=== PATIENT | male | born 1945 | race Caucasian/White ===

== ENCOUNTER → 2025-04-30 | Outpatient (CLI) | payer MEDICARE ==
[2025-04-30 14:08] VITALS: BP 174/93; PULSE 73; RESP 18; TEMP 97.8
--- NOTE | 2025-04-30 15:19 | P.SLEEP ---
History of Present Illness DATE: 04/30/2025 CONSULTATION/NEW PATIENT EVALUATION HISTORY OF PRESENT ILLNESS/SLEEP-WAKE EVALUATION: 79-year-old gentleman had b een evaluated in the sleep center for possible obstructive sleep apnea hypopnea syndrome. SLEEP SCHEDULE: Usually sleep schedule from midnight until 7:30 AM. FALLING ASLEEP: Usually no problems with falling asleep. DURING SLEEP: Patient snores and may wake up from sleep with nocturia. No history of hypnogogical hallucinations, sleep paralysis, or cataplexy. DURING THE DAY/WAKE STATE: Usually patient does not take naps. [place] sleepiness scale is 3. PAST MEDICAL HISTORY: Hypertension, BPH, stage III kidney failure. PAST SURGICAL HISTORY: Bilateral knees and hip arthroplasty, TURP. MEDICATIONS: Amlodipine 5 mg once a day, fluticasone nasal spray. SOCIAL HISTORY: Please see below. FAMILY HISTORY: Please see below. REVIEW OF SYSTEMS: Snoring. No fevers. No double vision. No recent chest pain. No shortness of breath. No abdominal pain. No bleeding episodes. No blood in urine. No seizure episodes. PHYSICAL EXAMINATION: GENERAL: A pleasant patient without any distress. VITAL SIGNS: Please see below, weight 203.2 pounds, BMI 30.8. HEENT: PERRLA, EOMI. Evaluation of oropharynx showed tongue protrudes midline, low position of soft palate Mallampati 4. NECK: Supple. No JVD. Thyroid is not palpable. 17 inches in circumference. LUNGS: Clear to percussion and to auscultation. Good air exchange. No wheezing or rhonchi. HEART: S1, S2 regular. No murmurs, gallops or rubs. ABDOMEN: Soft and nontender. Bowel sounds are present. No organomegaly appreciated. EXTREMITIES: No clubbing or cyanosis. 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 Cranial nerves 2 to 7 intact. There is no fasciculation or atrophy noted. No focal deficits observed. ASSESSMENT: 1. Snoring, awakenings from sleep, extremely low position of soft palate Mallampati 4, wide neck 17 inches in circumference. Obstructive sleep apnea hypopnea syndrome. 2. Hypertension. 3. History of stage III kidney failure. 4. Status post TURP. 5 status post bilateral hip arthroplasty. 6 . Status post bilateral knee arthroplasty. PLAN: 1. Polysomnography for evaluation of patient's breathing during sleep. 2. Following plan after reading sleep study. 3. Preferable position during sleep on the side. 4. No driving if patient feels any sleepiness. Patient is aware of civil and criminal liability for unsafe driving. 5. Sleep hygiene with regular sleep time for at least 7.5-8 hours. 6. Watching weight. Thank you very much for referring this patient for consultation. Sincerely, Ryland Quiroz MD, PhD, FAASM. Diplomat of [place] [employer], Sleep Medicine Board by [place] [employer] [place] [employer] Medical Chief Technician of [facility] [place] cc: Fernando Barnes DO Past Medical History Past Medical History: Hypertension Additional Past Medical History / Comment(s): Sinus infection currently History of Any Multi-Drug Resistant Organisms: None Reported Past Surgical History: Joint Replacement, Orthopedic Surgery Additional Past Surgical History / Comment(s): TURP, R HIP ARTHROPLASTY, L HIP ARTHROPLASTY L KNEE ARTHOPLASTY, R KNEE ARTHROPLASTY Past Psychological History: No Psychological Hx Reported Smoking Status: Never smoker Past Alcohol Use History: Occasional Past Drug Use History: None Reported - Past Family History Father Family Medical History: Cancer Additional Family Medical History / Comment(s): LUNG CANCER W/METASTASIS TO THE KIDNEY Mother Family Medical History: CVA/TIA Additional Family Medical History / Comment(s): FROM A STOKE Physical Exam Vitals: Vital Signs Temp Pulse Resp BP Pulse Ox 04/30/25 14:05 97.8 F 73 18 174/93 97 Intake and Output 04/30/25 04/30/25 04/30/25 06:59 14:59 22:59 Other: Weight 92.136 kg Sleep Note - Sleep Data ESS Total: 3 - Sleep Note Sleep Note: Temperature: 97.8 F Pulse Rate: 73 Respiratory Rate: 18 Blood Pressure: 174/93 SpO2: 97 Height: 5 ft 8 in Weight: 92.136 kg BMI: Neck Circumference:
== END ==
LOC: 3 N SLEEP 13:48
PROVIDERS: ATTEND Internal Medicine
DX: G47.33 Obstructive sleep apnea (adult) (pediatric) (principal); I12.9 Hypertensive chronic kidney disease with stage 1 through stage 4 chronic kidney disease, or unspecified chronic kidney disease; N18.30 Chronic kidney disease, stage 3 unspecified; Z98.890 Other specified postprocedural states
CPT/HCPCS: 99202

== ENCOUNTER 2025-06-04 19:45 | Outpatient (CLI) | payer MEDICARE ==
--- NOTE | 2025-06-13 18:34 | P.PCN ---
Description of Procedure: POLYSOMNOGRAPHY REPORT PROCEDURE(S)/DATE(S): Polysomnography 06/04/2025 CLINICAL: Patient has been seen in the sleep center for evaluation of obstructive sleep apnea-hypopnea syndrome. Please see my consultation. Sleep study has been done for evaluation of patient breathing during the sleep. PROCEDURE: The standard montage for clinical polysomnography included the electroencephalogram, the electrooculogram, the mentalis surface electromyography and Lead II cardiography. The respiratory battery consisted of measurements of nasal/buccal air flow, pressure transducer measurements from nose, thoracic and/or abdominal effort and intercostal surface electromyography. Video monitoring has been done to check for any parasomnia events. Nocturnal oxyhemoglobin saturations were obtained by finger oximetry. Step-serrano titration with positive airway pressure was utilized to control the respiratory events, if necessary. RESULTS: During the diagnostic sleep study sleep efficiency was decreased to 71.0%. Latency to sleep onset was normal 21.0 min. Sleep architecture showed stage NI was increased to 19.1%, Delta sleep was short 1.4%, REM sleep was short 16.4%. Respiratory channel showed 1 obstructive apneas, 0 mixed apneas, 0 central apneas, 109 hypopneas with lowest oxygen level 84%. Total apnea hypopnea index was 23.7. Heart rate was in the range between 51 and 60, average 54. EMG showed 16.8 periodic limb movements per hour with 2.6 micro-arousals per hour. IMPRESSIONS: 1. Moderate obstructive sleep apnea hypopnea syndrome. 2. 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 Please see other impressions from consultation PLAN: 1. The patient will have PAP titration for correction of respiratory abnormalities during the sleep. 2. Losing weight program. 3. Sleep hygiene with regular time in bed for at least 7-1/2 hours. 4. No driving if feeling sleepiness. 5. Please check iron profile including ferritin level. Low level of iron may increase the risk for periodic limb movements. Thank you very much for allowing me to participate in the management of your patient. Sincerely, Ryland Quiroz MD, PhD, FAASM. Diplomat of [place] [employer], Sleep Medicine Board by [place] [employer] Software Integration Developer of [facility] [place] cc: Fernando Barnes DO
== END 2025-06-05 05:33 | disposition home or self-care (01) ==
LOC: 3 N SLEEP 19:45
PROVIDERS: ATTEND Internal Medicine
DX: G47.33 Obstructive sleep apnea (adult) (pediatric) (principal); G47.61 Periodic limb movement disorder
CPT/HCPCS: 95810